=== PATIENT | female | born 1995 | race Caucasian/White ===

== ENCOUNTER 2016-03-23 12:32 | Emergency (ER) | payer BC, OTHER ==
[2016-03-23 12:56] VITALS: BP 121/72
--- NOTE | 2016-03-23 13:11 | UC ---
Eye Complaint HPI - HPI Summary HPI Summary: Pt presents with C/O waking this morning with yellow/green discharge from left eye. C/o that left eye was "glued" shut upon waking - History of Current Complaint Chief Complaint: UCEye Stated Complaint: POSSIBLE PINK EYE Time Seen by Provider: 03/23/16 13:08 Hx Obtained From: Patient Hx Last Menstrual Period: 02/21/16 ?: No Onset/Duration: Sudden Onset Timing: Constant Severity Initially: Mild Severity Currently: Mild Location of Injury: Conjunctiva Associated Signs And Symptoms: Positive: Drainage (Purulent) - Allergies/Home Medications Allergies/Adverse Reactions: Allergies Allergy/AdvReac Type Severity Reaction Status Date / Time No Known Allergies Allergy Verified 03/23/16 12:56 Home Medications: Home Medications Levonorgestrel-Ethinyl Estradi [Jolessa 0.15-0.03 mg] 03/23/16 [History] PMH/Surg Hx/FS Hx/Imm Hx Previously Healthy: Yes Endocrine History Of: Denies: Diabetes, Thyroid Disease Cardiovascular History Of: Denies: Cardiac Disorders, Hypertension Respiratory History Of: Denies: COPD, Asthma GI/ History Of: Denies: Ulcer - Surgical History Surgical History: None - Family History Known Family History: Positive: Other - positive [facility] for URI - Social History Occupation: Student Lives: With Family Alcohol Use: None Substance Use Type: None Smoking Status (MU): Never Smoked Tobacco Review of Systems Constitutional: Negative Skin: Negative Eyes: Drainage - left eye, Eye Redness - left eye ENT: Negative Respiratory: Negative Cardiovascular: Negative Gastrointestinal: Negative Genitourinary: Negative Motor: Negative Neurovascular: Negative Musculoskeletal: Negative Neurological: Negative Psychological: Negative All Other Systems Reviewed And Are Negative: Yes Physical Exam Triage Information Reviewed: Yes Appearance: Well-Appearing Vital Signs: Initial Vital Signs Temp 98.8 F 03/23/16 12:49 Pulse 60 03/23/16 12:49 Resp 16 03/23/16 12:49 BP 121/72 03/23/16 12:49 Pulse Ox 100 03/23/16 12:49 Eye Exam: Other Eyes: Positive: Conjunctiva Inflamed, Discharge - yellow ENT Exam: Normal Neck exam: Normal Respiratory Exam: Normal Musculoskeletal Exam: Normal Neurological Exam: Normal Psychological Exam: Normal Skin Exam: Normal Eye Complaint Course/Dx - Differential Dx/Diagnosis Differential Diagnosis/HQI/PQRI: Conjunctivitis Provider Diagnoses: conjunctivitis Discharge - Discharge Plan Condition: Stable Disposition: HOME Prescriptions: Polymyx/Trimethoprim OPTH* [Polytrim OPHTH*] 2 drop BOTH EYES Q3H #1 btl Patient Education Materials: Conjunctivitis (ED) Referrals: [facility] [Outside]
== END 2016-03-23 13:25 | disposition home or self-care (01) ==
LOC: UCEAST 12:32
DX: H10.9 Unspecified conjunctivitis (principal)
CPT/HCPCS: 99202; G0463